=== PATIENT | female | born 1965 | race Caucasian/White ===

== ENCOUNTER 2016-11-25 15:25 | Emergency (ER) | payer OTHER ==
--- NOTE | ~2016-11-25 | ER ---
PATIENT'S NAME: KOJO BRITTON [facility] AGE: 51 Y [address] ROOM: [place] [address] LOCATION: [facility] ADMIT DATE: 11/25/2016 ER/Outpatient Report DISCHARGE DATE: 11/25/2016 FAMILY PHYSICIAN: Cuca Srinivasan APRN ATTENDING PHYSICIAN: Tigre Alcantar Time of Arrival: 1525 hours. Time of Evaluation: 1542 hours. CHIEF COMPLAINT: Bilateral lower leg swelling. HISTORY OF PRESENT ILLNESS: Kojo is a 51-year-old female, who presents to the emergency room with an onset of bilateral lower leg swelling over the last 2 to 3 days. She states normally she has just a little bit, but this has been quite extensive. She does take Lasix 20 mg p.o. p.r.n. She did take 3 of them yesterday and 2 of them today. She reports she has not noticed a lot of difference. The patient denies any dizziness, feeling lightheaded, shortness of breath. She does have COPD and normally does have some wheezing, but reports it is not worse than normal. She denies any fevers, chills, or extreme body aches. The patient denies any recent new medications, does report that heat tends to make her swelling worse. She has no prior history of a DVT. PAST MEDICAL HISTORY: 1. Chronic pain syndrome. 2. COPD. 3. Bipolar disease. 4. Syncope. 5. Obesity. 6. History of lower leg swelling. ALLERGIES: 1. PERCOCET. 2. CORN DUST. CURRENT MEDICATIONS: The patient does bring a medication list which I did review. She is currently on Lasix 20 mg p.o. daily as needed. She is not on any other diuretics. SOCIAL HISTORY: She does smoke about 5 cigarettes per day, is trying to cut down. She also does drink alcohol 4 to 5 times a week at least 4 to 5 drinks with each sitting. She denies any drug use. PATIENT'S NAME: KOJO BRITTON [facility] AGE: 51 Y [address] ROOM: [place] [address] LOCATION: ED ADMIT DATE: 11/25/2016 ER/Outpatient Report DISCHARGE DATE: 11/25/2016 FAMILY PHYSICIAN: Cuca Srinivasan APRN ATTENDING PHYSICIAN: Tigre Alcantar REVIEW OF SYSTEMS: All systems were reviewed by myself and negative with the exception of those noted in the HPI. PHYSICAL EXAMINATION: VITAL SIGNS: Current weight 110.2 kg, temp 98.8, pulse is 97, respirations 18, blood pressure 145/65, she is 90% on room air. The patient does rate her pain at 0/10 at the time of admission. GENERAL: The patient is alert, oriented x4, cooperative, no acute distress. SKIN: Overall is within normal limits. There is just a little bit of redness to her left lower leg to the dorsal aspect, but it does wrap around a little bit into the calf area. EYES: Sclerae are nonicteric. Pupils equal, round, and reactive to light. NOSE: Nares are patent. No congestion is noted. MOUTH AND THROAT: Oropharynx is clear. Buccal mucosa is moist. Tongue is midline. NECK: Supple, no lymphadenopathy. No thyromegaly appreciated. There is no bruits audible. CHEST AND LUNGS: Lung sounds are pretty wheezy throughout, has a harsh loose cough. There are no retractions and/or accessory muscle use. HEART: Regular, no murmurs appreciated. ABDOMEN: Obese, soft. No masses. No organomegaly noted. EXTREMITIES: Lower legs, the patient does have some lower leg swelling, a little bit greater on the left than the right. It is nonpitting. Pedal pulses are 2+, palpable. A little redness to the left dorsal aspect of her left anterior leg, otherwise no other sores or abrasions are noted. She does have some chronic discoloration noted to her lower legs. NEUROLOGIC: Cranial nerves grossly intact. LABORATORY DATA AND X-RAYS: CBC: WBC 6.6, hemoglobin 15.2, MCV elevated 108.3, platelets down 110. D- dimer was elevated at 1.21. Potassium is 3.3, creatinine and BUN are within normal limits. Liver enzymes are elevated. Alkaline phosphatase 171, AST 47, proBNP is mildly elevated at 139. Please note, a chest x-ray 2-view was obtained, which I did review this with Dr. Alcantar. There is no cardiomegaly, bony structures are intact. There is no evidence of any effusions and/or infiltrates. Official x-ray report is pending. Please note, a venous Doppler was obtained on both legs due to her increased D- dimer. The rehabilitation therapy technician reports this is negative for DVT, official x-ray report is pending. ASSESSMENT: PATIENT'S NAME: KOJO BRITTON [facility] AGE: 51 Y [address] ROOM: [place], [place] [address] LOCATION: [facility] ADMIT DATE: 11/25/2016 ER/Outpatient Report DISCHARGE DATE: 11/25/2016 FAMILY PHYSICIAN: Cuca Srinivasan APRN ATTENDING PHYSICIAN: Tigre Alcantar 1. Bilateral lower leg swelling. 2. Hypokalemia, likely secondary to diuretic use. 3. Elevated liver enzymes, likely secondary to alcohol use. PLAN: We did review over lab tests with the patient along with the vascular study. I do not feel at this point we need to add any further Lasix here in the emergency room, there is no indication of fluid overload, kidney function is good. The patient is going to obtain some LISS hose, I would encourage her to wear those daily. Also, she will go ahead and take Lasix 40 mg daily for the next 2 days and then 20 mg daily until she does follow up with her primary care physician at [facility] next Tuesday. She does have potassium at home, and she will take 20 mEq daily until she also sees her primary care physician. She needs to limit her sodium intake, no excessive water and also wear her LISS hose daily. If there would be any changes such as increased shortness of breath, chest discomfort, increased swelling, she is to follow up sooner. The patient also did receive a nebulizer treatment in the ER, and this did really help her lung sounds. I do have a suspicion that the patient probably does have some increased pressures and has some pulmonary hypertension secondary to likely KAMAR and also her COPD. She has not had any pulmonary function tests, and this is something I would highly recommend. The patient verbalizes understanding, stable. RUBY ROMERO APRN FOR MD [facility] [place]/lu /[id number] d: 11/26/16 0059 t: 12/06/16 0702, OUTPATIENT REPORT
--- NOTE | ~2016-11-25 | ENPV ---
Vascular Lower Extremities DVT Study Procedure Demographics Patient Name KOJO BRITTON Date of Study 11/25/2016 Patient Number [id number] Gender Female Date of 1965 Age 51 Visit Number [id number] Height Accession Number [id number] Weight Room Number BSA BMI Referring Katharine Landeros MD Interpreting Bud Melgar MD Physician Physician Physician Ordering Physician Katharine Landeros MD Cardiology Manager Manager Community Stephanie Rivas [facility] Conclusions Summary There is moderate interstitial edema noted below the knee in the calf and ankle/foot. No evidence of deep vein thrombosis or superficial thrombophlebitis in the lower extremities bilaterally . Cannot rule out thrombus in calf veins due to swelling and limited visibility. Procedure Type of Study: Veins:Lower Extremities DVT Study, Venous Duplex Lower Extremity Bilateral. Indications for Study:Swelling of Limb. Appropriate Use Criteria:9 Patient Status:STAT. Study Location:ER. Technical Quality:Adequate visualization. Velocities are measured in cm/s ; Diameters are measured in cm Right Lower Extremities DVT Study Measurements Right 2D and Doppler Measurements + + + + +------+------+ + !Location !Visualized!Compressibility!Thrombosis!Signal!Reflux!Reflux ! ! ! ! ! ! ! !(sec) ! + + + + +------+------+ + !GSV Thigh !Yes !Yes !None !Phasic! ! ! + + + + +------+------+ + !Common !Yes !Yes !None !Phasic! ! ! !Femoral ! ! ! ! ! ! ! + + + + +------+------+ + !Prox !Yes !Yes !None !Phasic! ! ! !Femoral ! ! ! ! ! ! ! + + + + +------+------+ + !Mid Femoral!Yes !Yes !None !Phasic! ! ! + + + + +------+------+ + !Dist !Yes !Yes !None !Phasic! ! ! !Femoral ! ! ! ! ! ! ! + + + + +------+------+ + !Popliteal !Yes !Yes !None !Phasic! ! ! + + + + +------+------+ + !Gastroc !Yes !Yes !None ! ! ! ! + + + + +------+------+ + !PTV !Yes !Yes !None ! ! ! ! + + + + +------+------+ + !Peroneal !Yes !Yes !None ! ! ! ! + + + + +------+------+ + Left Lower Extremities DVT Study Measurements Left 2D and Doppler Measurements + + + + +------+------+ + !Location !Visualized!Compressibility!Thrombosis!Signal!Reflux!Reflux ! ! ! ! ! ! ! !(sec) ! + + + + +------+------+ + !GSV Thigh !Yes !Yes !None !Phasic! ! ! + + + + +------+------+ + !Common !Yes !Yes !None !Phasic! ! ! !Femoral ! ! ! ! ! ! ! + + + + +------+------+ + !Prox !Yes !Yes !None !Phasic! ! ! !Femoral ! ! ! ! ! ! ! + + + + +------+------+ + !Mid Femoral!Yes !Yes !None !Phasic! ! ! + + + + +------+------+ + !Dist !Yes !Yes !None !Phasic! ! ! !Femoral ! ! ! ! ! ! ! + + + + +------+------+ + !Popliteal !Yes !Yes !None !Phasic! ! ! + + + + +------+------+ + !Gastroc !Yes !Yes !None ! ! ! ! + + + + +------+------+ + !PTV !Yes !Yes !None ! ! ! ! + + + + +------+------+ + !Peroneal !No ! ! ! ! ! ! + + + + +------+------+ + Signature dtt: STANISLAW TEE dtd: 11/25/16 1732 Physician Tony Lowery
[2016-11-25 16:18] LABS: BASOPHIL % 0.5 %; EOSINOPHIL # 0.1 K/uL (0.0-0.5); EOSINOPHIL % 2.1 %; HEMATOCRIT 44.3 % (33.0-46.0); HEMOGLOBIN 15.2 g/dL (10.0-15.0); IMMATURE GRANULOCYTE % 0.5 %; LYMPHOCYTE # 3.4 K/uL (0.8-4.0); LYMPHOCYTE % 50.6 %; MCH 37.2 pg (27.0-34.0); MCHC 34.3 gm/dL (32.0-36.5); MCV 108.3 fl (83.0-98.0); MONOCYTE # 0.3 K/uL (0.0-1.0); MONOCYTE % 4.5 %; MPV 9.5 fl (9.4-12.4); NEUTROPHIL # (ANC) 2.8 K/uL (1.8-7.8); NEUTROPHIL % 41.8 %; NRBC % 0 /100WBC (0-0.00); PLATELET COUNT 110 K/uL (150-450); RBC 4.09 M/uL (3.50-5.50); RDW-CV 15.1 % (11.9-14.6); WBC 6.6 K/uL (4.0-11.0)
[2016-11-25 16:38] LABS: ALBUMIN 3.1 gm/dL (3.5-5.0); ALK PHOS 171 IU/L (33-138); ALT 38 IU/L (12-78); ANION GAP 10.3 (10.0-19.0); AST 47 IU/L (10-40); BLOOD UREA NITROGEN 4 mg/dL (6-24); CALCIUM 8.6 mg/dL (8.5-10.5); CHLORIDE 98 mMol/L (96-110); CO2 33 mMol/L (22-32); CREATININE 0.8 mg/dL (0.5-1.1); ESTIMATED GFR (MDRD EQUATION) > 60; POTASSIUM 3.3 mMol/L (3.7-5.1); SODIUM 138 mMol/L (135-145); TOTAL BILIRUBIN 1.1 mg/dL (0.0-1.5); TOTAL PROTEIN 7.8 g/dL (6.0-8.4)
== END 2016-11-25 18:06 | disposition disaster alternative care site (69) ==
LOC: GMED 15:25
PROVIDERS: Emergency Medicine
DX: M79.89 Other specified soft tissue disorders (principal); E87.6 Hypokalemia; R79.89 Other specified abnormal findings of blood chemistry; J44.9 Chronic obstructive pulmonary disease, unspecified; F31.9 Bipolar disorder, unspecified; G89.29 Other chronic pain; E66.9 Obesity, unspecified; F17.210 Nicotine dependence, cigarettes, uncomplicated; Z88.5 Allergy status to narcotic agent; Z88.8 Allergy status to other drugs, medicaments and biological substances; Z79.899 Other long term (current) drug therapy

== ENCOUNTER → 2017-02-16 | Outpatient (CLI) | payer SELFPAY ==
--- NOTE | ~2017-02-16 | PUL ---
PATIENT'S NAME: KOJO VIDAL [facility] AGE: 51 Y [address] ROOM: [place] [address] LOCATION: [facility] ADMIT DATE: 02/16/2017 Pulmonary DISCHARGE DATE: FAMILY PHYSICIAN: MARV PAULA APRN ATTENDING PHYSICIAN: MARV PAULA NAME OF PROCEDURE: Home sleep test DATE OF PROCEDURE: 02/16/17 TECH: LASHA Costello SUMMARY: Patient underwent home sleep testing using a type III device and was studied for 9 hours 8 minute. There were a total of 7 apneas and 59 hypopneas for an apnea/hypopnea index mildly elevated at 7.2 events per hour. Baseline O2 saturation was low at 81%. Saturations were below 88% for essentially the entire study although it is not clear if that was a technical issue. There were technical issues with the flow sensor not picking up events and therefore respiratory events were probably under represented. For this reason, I would suggest a repeat in lab study. IMPRESSION: Obstructive sleep apnea. Probably more severe than represented on this study. PLAN: Suggest a repeat in lab study. The patient will receive results from the ordering provider. MD JENNA MENCHACA/ /[id number] dtt: 02/22/17 1206 , dtd:
== END | disposition disaster alternative care site (69) ==
LOC: GSLP 01-31 17:10
DX: G25.81 Restless legs syndrome (principal); G47.00 Insomnia, unspecified; R06.83 Snoring; G47.62 Sleep related leg cramps; G62.9 Polyneuropathy, unspecified; M19.90 Unspecified osteoarthritis, unspecified site; R53.83 Other fatigue; J44.9 Chronic obstructive pulmonary disease, unspecified; Z90.89 Acquired absence of other organs; Z98.51 Tubal ligation status; Z79.899 Other long term (current) drug therapy; Z88.8 Allergy status to other drugs, medicaments and biological substances
CPT/HCPCS: G0399